=== PATIENT | male | born 1950 | race Caucasian/White ===

== ENCOUNTER 2016-09-10 09:09 | Emergency (ER) | payer OTHER ==
[~2016-09-10] VITALS: Ht 175.3 cm; Wt 87.1 kg
[~2016-09-10 09:09] MED LIST: AVAPRO150 M1 PO; BALANCED B COM1 EACH PO; BAYER CHEWABLE81 MG PO; ESCITALOPRAM OX10 MG PO; LYRICA150 M1 PO; METANX CAPSULE1 EACH PO; PROLIA60 MG/1 ML INJ; SIMVASTATIN80 M1 PO; VGO 201 EACH; VITAMIN D1000 UNIT PO
[2016-09-10 11:27] VITALS: BP 182/78
--- NOTE | 2016-09-10 11:43 | RADIOLOGY REPORT ---
EXAMINATION: XR FOOT, RIGHT CLINICAL INFORMATION: Right foot ecchymosis. COMPARISON: None TECHNIQUE: AP, lateral, and oblique views of the right foot. FINDINGS: There is no evidence of acute fracture or dislocation. Marked changes noted in the tarsal joints. This especially evident in the navicular cuneiform joint. Subcortical cystic changes noted in the navicular. Inferior calcaneal spur. Degenerative changes noted in the interphalangeal joints. No gross soft tissue swelling. IMPRESSION: 1. No acute osseous abnormality. 2. Arthritic changes notably medial tarsal joints.
--- NOTE | 2016-09-12 16:41 | ED GENERAL ADULT ---
History of Present Illness General Chief Complaint: Lower Extremity Problems Stated Complaint: DISCOLORATION/SWELLING TO RT FOOT X 2 DAYS Source: patient, family Exam Limitations: no limitations Vital Signs & Intake/Output Vital Signs & Intake/Output HE WILL FOLLOW-UP WITH HIS DOCTOR NEXT WEEK. RETURN TO THE EMERGENCY DEPARTMENT OF [facility]. X-RAY WAS NEGATIVE FOR FRACTURE BUT DID SHOW ARTHRITIS. Allergies Coded Allergies: NO KNOWN ALLERGIES (02/26/16) Reconcile Medications Aspirin (Teresita Chewable Aspirin) 81 MG TAB.CHEW 1 TAB PO DAILY HEART HEALTH ( Reported) Cholecalciferol (Vitamin D3) (Vitamin D) 1,000 UNIT TABLET 1 TAB PO BID VITAMIN BONE HEALH (Reported) Denosumab (Prolia) 60 MG/1 ML SYRINGE DIABETES (Reported) Escitalopram Oxalate 10 MG TABLET 1 TAB PO BID MENTAL HEALTH (Reported) Irbesartan (Avapro) 150 MG TABLET 1 TAB PO DAILY URINARY ISSUES (Reported) Pregabalin (Lyrica) 150 MG CAPSULE 1 CAP PO BID PAIN (Reported) Simvastatin (Simvastatin*) 80 MG TABLET 1 TAB PO DAILY HEART HEALTH (Reported ) Sub-Q Insulin Device, 20 Unit (Vgo 20) 1 EACH EACH DIABETES (Reported) Vitamin B Complex & Vit C No.3 (Balanced B Complex-Vit C) 1 EACH TABLET.ER 1 TAB PO BID VITAMIN (Reported) Triage Note: C/O R TOES DISCOLORATION AND SWELLING X 2 DAYS. STATES HE FALLS FRREQUENTLY DUE TO NEUROPATHY AND BILATERLA LOWER LEG NUMBNESS. FELL LAST WEEK. PMH:IDDM (INSULIN PUMP) Triage Nurses Notes Reviewed? yes Onset: Abrupt Duration: day(s): Timing: recent history HPI: 09/10/16 THIS IS A 66-YEAR-OLD MALE WHO PRESENTS TO THE EMERGENCY DEPARTMENT FOR ECCHYMOSIS TO THE RIGHT FOOT. The patient states he has a history of neuropathy. He has decreased sensation to his lower extremities. He says that he noticed some ecchymosis to the right great toe and just below the second and third toe. he was concerned he may have a fracture. The onset of the symptoms were abrupt. duration was the past 48 hours. the severity was significant as his symptoms required him to come to the emergency department for care. he has associated ecchymosis to the right foot. there is no shortness of breath. there is no fever. he has no associated other complaints. Past History Travel History Traveled to [place] past 21 day No Medical History Any Pertinent Medical History? 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 No Review of Systems Review of Systems Constitutional: Denies: fever. EENTM: Reports: no symptoms. Respiratory: Reports: no symptoms. Cardiovascular: Reports: no symptoms. GI: Reports: no symptoms. Genitourinary: Reports: no symptoms. Musculoskeletal: Reports: see HPI. Skin: Reports: see HPI. Neurological/Psychological: Reports: no symptoms. Hematologic/Endocrine: Reports: bruising. Immunologic/Allergic: Reports: see HPI. Physical Exam Physical Exam General Appearance: no apparent distress, alert, awake, anxious Head: atraumatic, normal appearance Eyes: Bilateral: normal appearance, PERRL, EOMI. Ears, Nose, Throat: normal ENT inspection Neck: supple Respiratory: chest non-tender, no respiratory distress Cardiovascular: regular rate/rhythm Peripheral Pulses: 2+ dorsalis pedis (R), 2+ dorsalis pedis (L) Back: normal range of motion Extremities: ECCHYMOSIS RIGHT FOOT Neurologic/Psych: awake, alert, oriented x 3 Skin: normal color, warm/dry, ECCHYMOSIS RIGHT FOOT Core Measures ACS in differential dx? No CVA/TIA Diagnosis: No Severe Sepsis Present: No Septic Shock Present: No Progress Differential Diagnoses I considered the following diagnoses in my evaluation of the patient: [ FRACTURE , CONTUSION, ARTHRITIS, DVT, acute arterial occlusion, coagulopathy, peripheral vascular disease] Plan of Care: FOLLOW-UP WITH HIS PCP next week. Initial ED EKG: none Departure Departure Disposition: HOME OR SELF CARE Condition: Stable Clinical Impression Primary Impression: Contusion Secondary Impressions: Neuropathy Referrals: CRUZ ROX ARORA (PCP/Family) Additional Instructions: FOLLOW UP NEEDED ED IF PAIN OR WORSE Departure Forms: Customer Survey General Discharge Information Comments THE RIGHT FOOT HAS A PALPABLE DORSALIS PEDIS PULSE AND CAPILLARY REFILL IS LESS THAN 2 SECONDS. THE TEMPERATURE BETWEEN THE 2 FEET ARE EQUAL. HE DOES HAVE SOME ECCHYMOSIS TO THE BASE OF THE RIGHT GREAT TOE, AND TO THE BASE OF THE FIRST AND SECOND TOE. X-RAYS NEGATIVE FOR FRACTURE. Critical Care Note Critical Care Note Critical Care Time: non-applicable
== END 2016-09-10 12:24 ==
LOC: ERH 09:09
DX: S90.121A Contusion of right lesser toe(s) without damage to nail, initial encounter (principal); G62.9 Polyneuropathy, unspecified; W19.XXXA Unspecified fall, initial encounter; Y92.9 Unspecified place or not applicable; Y93.9 Activity, unspecified
CPT/HCPCS: 73630-RT

== ENCOUNTER 2016-09-16 11:46 | Emergency (ER) | payer OTHER ==
[~2016-09-16] VITALS: Ht 177.8 cm; Wt 83.5 kg
--- NOTE | 2016-09-16 13:28 | RADIOLOGY REPORT ---
EXAMINATION: XR CHEST CLINICAL INFORMATION: Night sweats and weakness. COMPARISON: Chest x-ray 02/06/2016. TECHNIQUE: Frontal and lateral views of the chest were obtained. FINDINGS: The lung crespo are well expanded and appear clear bilaterally. The cardiac silhouette is normal. There are no pleural effusions or pneumothorax. The central pulmonary vasculature is normal. The hilar regions appear normal. There are no acute osseous findings. IMPRESSION: 1. There are no acute cardiopulmonary findings.
[2016-09-16 13:49] LABS: ABSOLUTE BASOPHIL COUNT 0 /CUMM (0.0-0.2); ABSOLUTE EOSINOPHIL COUNT 0.1 /CUMM (0.0-0.7); ABSOLUTE GRANULOCYTE CT 4.2 /CUMM (1.4-6.5); ABSOLUTE LYMPH COUNT 1.4 /CUMM (1.2-3.4); ABSOLUTE MONOCYTE COUNT 0.5 /CUMM (0.10-0.60); BASOPHIL % 0.6 % (0.0-2.0); EOSINOPHIL % 1.2 % (0-5); GRANULOCYTE % 67.2 % (42.2-75.2); HEMATOCRIT 37.2 % (42-52); MEAN CORPUSCULAR HGB 26.9 PG (27.0-31.0); MEAN CORPUSCULAR HGB CONC 33.6 G/DL (33.0-37.0); MEAN CORPUSCULAR VOLUME 80.2 FL (80.0-94.0); PLATELET COUNT 263 /CUMM (130-400); RBC DISTRIBUTION WIDTH 13.6 % (11.5-14.5); RED BLOOD CELL CT 4.64 /CUMM (4.70-6.10); WHITE BLOOD CELL COUNT 6.2 /CUMM (4.8-10.8)
[2016-09-16] MEDS ORDERED: BACTRIM DS TAB1 EACH PO (14:19)
--- NOTE | 2016-09-16 14:20 | ED GENERAL ADULT ---
History of Present Illness General Chief Complaint: General Adult Stated Complaint: LIGHT HEADED POOR NPO INTAKE Source: patient, family, old records Exam Limitations: no limitations Vital Signs & Intake/Output Vital Signs & Intake/Output Vital Signs Date Time Temp Pulse Resp B/P Pulse O2 O2 Flow FiO2 Ox Delivery Rate 09/16 1443 69 20 192/80 98 Room Air 09/16 1358 96.5 84 18 195/89 97 Room Air 09/16 1201 98 Room Air Room Air 09/16 1151 97.1 91 18 140/71 99 Room Air Allergies Coded Allergies: No Known Allergies (09/16/16) Reconcile Medications Aspirin (Teresita Chewable Aspirin) 81 MG TAB.CHEW 1 TAB PO DAILY HEART HEALTH ( Reported) Cholecalciferol (Vitamin D3) (Vitamin D) 1,000 UNIT TABLET 1-2 TAB PO BID VITAMIN BONE HEALH (Reported) TAKES 2 TABS IN THE MORNING AND 1 AT NIGHT Denosumab (Prolia) 60 MG/1 ML SYRINGE 1 ML INJ SI DIABETES (Reported) TAKES EVERY 6 MONTHS, LAST HAD 06/2016 Escitalopram Oxalate 10 MG TABLET 1 TAB PO BID MENTAL HEALTH (Reported) Irbesartan (Avapro) 150 MG TABLET 1 TAB PO DAILY URINARY ISSUES (Reported) Pregabalin (Lyrica) 150 MG CAPSULE 1 CAP PO BID PAIN (Reported) Simvastatin (Simvastatin*) 80 MG TABLET 1 TAB PO DAILY HEART HEALTH (Reported ) Sub-Q Insulin Device, 20 Unit (Vgo 20) 1 EACH EACH DIABETES (Reported) Sulfamethoxazole/Trimethoprim (Bactrim Ds Tablet) 800 MG-160 MG TABLET 1 TAB PO BID bactiuria Vitamin B Complex & Vit C No.3 (Balanced B Complex-Vit C) 1 EACH TABLET.ER 1 TAB PO BID VITAMIN (Reported) Core Measure Meds Pre-Hospital aspirin Triage Note: 66 Y/O MALE C/O NOT FEELING WELL X A FEW DAYS. STATES HE HASN'T BEEN DRINKING A LOT OF LIQUIDS AND HAS BEEN WAKING IN NIGHT WITH SWEATS. STATES "THE DOCTOR WANTS MY KIDNEYS CHECKED" DUE TO RECENT HX OF "BLOOD IN KIDNEY". DENIES N/V/D. DENIES PAIN. Triage Nurses Notes Reviewed? yes Onset: 2 days Duration: day(s):, continues in ED, waxing and waning Timing: recent history Injury Environment: home Severity: severe No Modifying Factors: none Associated Symptoms: diaphoresis HPI: 2 days prior to admission patient reports anorexia and fatigue with nocturnal sweating chills. He denies fever nausea vomiting diarrhea abdominal pain dysuria rash headache bleeding chest pain shortness of breath cough. Past History Travel History Traveled to [place] past 21 day No Medical History Any Pertinent Medical History? 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 No Review of Systems Review of Systems Constitutional: Reports: see HPI, diaphoresis, malaise. EENTM: Reports: no symptoms. Respiratory: Reports: no symptoms. Cardiovascular: Reports: no symptoms. GI: Reports: no symptoms. Genitourinary: Reports: no symptoms. Musculoskeletal: Reports: no symptoms. Skin: Reports: no symptoms. Neurological/Psychological: Reports: no symptoms. Hematologic/Endocrine: Reports: no symptoms. Immunologic/Allergic: Reports: no symptoms. All Other Systems: Reviewed and Negative Physical Exam Physical Exam General Appearance: well developed/nourished, alert, awake, anxious, moderate distress Head: atraumatic, normal appearance Eyes: Bilateral: normal appearance, PERRL, EOMI. Ears, Nose, Throat: normal pharynx, normal ENT inspection, hearing grossly normal Neck: normal inspection, supple, full range of motion, no midline tenderness Respiratory: normal breath sounds, chest non-tender, no respiratory distress, quiet respiration, lungs clear Cardiovascular: regular rate/rhythm, normal peripheral pulses, norml femoral pulses equa Peripheral Pulses: 4+ carotid (R), 4+ carotid (L) Gastrointestinal: normal bowel sounds, soft, non-tender, no organomegaly Back: normal inspection, normal range of motion Extremities: normal inspection, normal capillary refill, normal range of motion, no edema, no ligament instability Neurologic/Psych: awake, alert, oriented x 3, normal gait, normal mood/affect, 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 Skin: intact, normal color, warm/dry Lymphatic: no anterior cervical patrick Core Measures ACS in differential dx? No CVA/TIA Diagnosis: No Severe Sepsis Present: No Septic Shock Present: No Progress Differential Diagnoses I considered the following diagnoses in my evaluation of the patient: Pneumonia UTI prostatitis bacteremia DKA Plan of Care: Orders Procedure Date/time Status URINALYSIS 09/16 1214 Complete TSH REFLEX 09/16 1214 Complete TROPONIN LEVEL 09/16 1214 Complete LIPASE 09/16 1214 Complete COMPREHENSIVE METABOLIC PANEL 09/16 1214 Complete CBC WITHOUT DIFFERENTIAL 09/16 1214 Complete ACETONE 09/16 1214 Complete EKG 09/16 1214 Active Laboratory Tests 09/16/16 1338: RBC 4.64 L, MCV 80.2, MCH 26.9 L, RDW 13.6, MPV 9.0, Gran % 67.2, Lymphocytes % 23.1, Monocytes % 7.9, Eosinophils % 1.2, Basophils % 0.6, Absolute Granulocytes 4.2, Absolute Lymphocytes 1.4, Absolute Monocytes 0.5, Absolute Eosinophils 0.1, Absolute Basophils 0, PUBS MCHC 33.6 09/16/16 1235: Anion Gap 9, Estimated GFR > 60, BUN/Creatinine Ratio 21.0, Glucose 193 H, Calcium 10.1, Total Bilirubin 0.7, AST 29, ALT 62, Alkaline Phosphatase 110, Troponin I < 0.01, Total Protein 7.5, Albumin 4.3, Globulin 3.2, Albumin/ Globulin Ratio 1.3, Lipase 250, TSH &T3 &Free T4 Intrp 1.470, Acetone Level NEGATIVE 09/16/16 1223: Urinalysis LIGHT H, Urine Color YEL, Urine Clarity HAZY H, Urine pH 5.5, Ur Specific Bernard >= 1.030, Urine Protein 30 H, Urine Ketones 15 H, Urine Nitrite POS H, Urine Bilirubin NEG@ICTO, Urine Urobilinogen 0.2, Ur Leukocyte Esterase NEG, Ur Microscopic SEDIMENT EXAMINED, Urine RBC 1-3, Urine WBC 3-5 H, Ur Epithelial Cells FEW, Urine Bacteria FEW H, Urine Mucus MANY H, Urine Hemoglobin TRACE-INTACT H, Urine Glucose >=1000 H Diagnostic Imaging: Viewed by Me: Radiology Read. Discussed w/RAD: Radiology Read. CXR Impression: no acute abnormality Initial ED EKG: normal axis, normal intervals, normal p-waves, normal QRS complex, normal sinus rhythm, no ST T wave changes Prior EKG: unchanged Rhythm Strip: normal sinus rhythm Departure Departure Time of Disposition: 1416 Disposition: HOME OR SELF CARE Condition: Stable Clinical Impression Primary Impression: Bacteriuria Secondary Impressions: Elevated serum glucose with glucosuria Referrals: CRUZ ROX ARORA (PCP/Family) Departure Forms: Customer Survey General Discharge Information Prescriptions: Current Visit Scripts Sulfamethoxazole/Trimethoprim (Bactrim Ds Tablet) 1 TAB PO BID #20 TAB Critical Care Note Critical Care Note Critical Care Time: non-applicable
[2016-09-16 14:43] VITALS: BP 192/80
== END 2016-09-16 14:51 ==
LOC: ERH 11:46
PROVIDERS: Emergency Medicine
DX: R82.71 Bacteriuria (principal); R73.09 Other abnormal glucose
CPT/HCPCS: 81001; 93005; 93010; 96361; 96374; J0696

== ENCOUNTER 2016-09-28 19:05 | Emergency (ER) | payer OTHER ==
[~2016-09-28] VITALS: Ht 177.8 cm; Wt 84.8 kg
[~2016-09-28 19:05] MED LIST changes: +BACTRIM DS TAB1 EACH PO
--- NOTE | 2016-09-28 20:40 | RADIOLOGY REPORT ---
EXAMINATION: 4 VIEWS OF THE LEFT WRIST AND 4 VIEWS OF THE RIGHT WRIST CLINICAL INFORMATION: Pain after fall. Rule out fracture. COMPARISON: None TECHNIQUE: 4 views of the right wrist 4 views of the left wrist. FINDINGS: Left wrist: There is a transverse impacted fracture of the distal radial metaphysis with overriding fracture fragments. It is difficult to discern as to whether there is a fracture line component extending to the radial articular surface. The carpal bones are in normal anatomic alignment. There is no significant abnormal angulation at the fracture site. Surrounding soft tissue swelling is noted. There may be a subtle nondisplaced fracture through the distal ulna which is only visible on the frontal projection. Right wrist: There is a transverse fracture through the distal radial metaphysis without impaction. The ulnar styloid process is avulsed. Surrounding soft tissue swelling is noted. The carpal bones are in normal anatomic alignment with the distal radius. No additional fractures are identified. IMPRESSION: Left wrist: Impacted fracture of the distal radial metaphysis with a suspected subtle nondisplaced fracture through the distal ulna as well. Surrounding soft tissue swelling. A subtle fracture line extending to the radiocarpal articulation cannot be excluded. No significant abnormal malalignment at the fracture site. Right wrist: Transverse fracture of the distal radius without impaction or abnormal angulation. Additional avulsion fracture of the ulnar styloid process. Soft tissue swelling. No abnormal angulation at the fracture site.
--- NOTE | 2016-09-28 20:50 | ED UPPER/LOWER EXTREMITY COMPL ---
History of Present Illness General Chief Complaint: Hand or Wrist Injury Stated Complaint: BI LATERAL WRIST PAIN Source: patient Exam Limitations: no limitations Vital Signs & Intake/Output Vital Signs & Intake/Output Vital Signs Date Time Temp Pulse Resp B/P Pulse O2 O2 Flow FiO2 Ox Delivery Rate 09/28 2124 Room Air 09/29 2103 98.5 70 16 157/71 99 Room Air 09/28 1928 97.1 74 18 168/80 100 Room Air Allergies Coded Allergies: No Known Allergies (09/16/16) Reconcile Medications Aspirin (Teresita Chewable Aspirin) 81 MG TAB.CHEW 1 TAB PO DAILY HEART HEALTH ( Reported) Cholecalciferol (Vitamin D3) (Vitamin D) 1,000 UNIT TABLET 1-2 TAB PO BID VITAMIN BONE HEALH (Reported) TAKES 2 TABS IN THE MORNING AND 1 AT NIGHT Denosumab (Prolia) 60 MG/1 ML SYRINGE 1 ML INJ SI DIABETES (Reported) TAKES EVERY 6 MONTHS, LAST HAD 06/2016 Escitalopram Oxalate 10 MG TABLET 1 TAB PO BID MENTAL HEALTH (Reported) Irbesartan (Avapro) 150 MG TABLET 1 TAB PO DAILY URINARY ISSUES (Reported) Oxycodone HCl/Acetaminophen (Percocet 5-325 MG Tablet) 5 MG-325 MG TABLET 1 TAB PO Q6 PRN PAIN Pregabalin (Lyrica) 150 MG CAPSULE 1 CAP PO BID PAIN (Reported) Simvastatin (Simvastatin*) 80 MG TABLET 1 TAB PO DAILY HEART HEALTH (Reported ) Sub-Q Insulin Device, 20 Unit (Vgo 20) 1 EACH EACH DIABETES (Reported) Sulfamethoxazole/Trimethoprim (Bactrim Ds Tablet) 800 MG-160 MG TABLET 1 TAB PO BID bactiuria Vitamin B Complex & Vit C No.3 (Balanced B Complex-Vit C) 1 EACH TABLET.ER 1 TAB PO BID VITAMIN (Reported) Triage Note: PT TO ED FOR BILATERAL WRIST PAIN. STATING HE FELL WHILE GOLFING TODAY. PT ABLE TO WIGGLE FINGERS, +PULSES, NO DEFORMITY. PT REQUESTING XRAY OF BOTH WRISTS. Triage Nurses Notes Reviewed? yes Onset: Abrupt Duration: constant Timing: single episode today Severity: moderate Severity Numbers: 5 Pain/Injury Location: Bilateral: Wrist. Method of Injury: direct blow, fall HPI: Patient is a 66-year-old male who presents emergency room saying that [place] patient swung a golf club misstepped and fell backwards bracing his fall with bilateral upper extremities resulting acute onset of localized bilateral wrist pain. Denies any head strike elbow pain (DOMINIK LANZA) Past History Travel History Traveled to [place] past 21 day No Medical History Any Pertinent Medical History? 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 No (DOMINIK LANZA) Review of Systems Review of Systems Constitutional: Reports: no symptoms. EENTM: Reports: no symptoms. Respiratory: Reports: no symptoms. Cardiovascular: Reports: no symptoms. Gastrointestinal/Abdominal: Reports: no symptoms. Genitourinary: Reports: no symptoms. Musculoskeletal: Reports: see HPI, joint pain. Skin: Reports: no symptoms. Neurological/Psychological: Reports: no symptoms. Hematologic/Endocrine: Reports: no symptoms. Immunological: Reports: no symptoms. All Other Systems: Reviewed and Negative (DOMINIK LANZA) Physical Exam Physical Exam General Appearance: no apparent distress, alert, comfortable Neurologic/Tendon: normal sensation, normal motor functions, normal tendon functions, responds to pain, no evidence tendon injury Comments: Well-developed well-nourished no apparent distress. HEENT: Atraumatic, extraocular motion intact Neck: Supple, no lymphadenopathy Back: Nontender Respiratory: No respiratory distress Extremities: Bilateral elbow nontender full active range of motion normal inspection Bilateral wrist noted point tenderness decreased active range of motion radial pulse +2 decreased active range of motion Bilateral hand normal inspection nontender Capillary refill less than 2 seconds Bilateral upper extremity dermatomes intact Neuro: Alert and oriented x3 Psych: Mood affect normal, normal memory normal judgment. (DOMINIK LANZA) Progress Differential Diagnosis: arterial insufficiency, compartment syndrome, contusion, dislocation, DVT, fracture, gout, septic arthritis, sprain, tendon injury Plan of Care: Orders Procedure Date/time Status Durable Medical Equipment 09/28 2233 Active Left upper extremity on exam has no concern of neurovascular compromise when concerned with x-ray on initial exam. I discussed x-ray findings with Dr. Darnell who advised reduction in the emergency room. Sterile technique Betadine was first applied then using 8 30-1/2-gauge needle I applied intradermal localization of 1% lidocaine and using at the same location A 25-gauge needle I performed a hematoma block using 1% lidocaine 10 mL which was successful for local anesthesia. Reduction was performed patient tolerated well sugar tong splint was then applied shoulder immobilizer was also applied pre-and post-neurovascular was intact Patient was strongly advised to follow-up with Dr. Darnell The right forearm was not reduced in the emergency room however I did apply a sugar tong splint to the right wrist Shoulder immobilizers were placed to bilateral upper extremities Pre-and post-neurovascular was intact (YOVANA MAGALLON,DOMINIK) Diagnostic Imaging: Viewed by Me: Radiology Read. Radiology Impression: acute abnormality Comments: PATIENT: BENOIT FERNANDEZ PRESENT AGE: 66 PATIENT ACCOUNT NO: [id number] : 52 LOCATION: [facility] ORDERING PHYSICIAN: DOMINIK MAGALLON SERVICE DATE: 09/28/16 EXAM TYPE: RAD - XRY-WRIST COMPLETE-LEFT EXAMINATION: XR WRIST, LEFT CLINICAL INFORMATION: Status post reduction left wrist. COMPARISON: Left wrist 09/28/2016 performed earlier today. TECHNIQUE: AP, lateral, and oblique views of the left wrist. FINDINGS: There is an impacted distal radial fracture stabilized with left wrist in a hard cast. No change in distal left ulnar fracture. IMPRESSION: Stabilized impacted left distal radial and subtle ulnar styloid process fracture with left wrist in a hard cast. PATIENT: BEONIT FERNANDEZ PRESENT AGE: 66 PATIENT ACCOUNT NO: [id number] : 52 LOCATION: ER ORDERING PHYSICIAN: CARMEL SOUZA MD SERVICE DATE: 09/28/16 EXAM TYPE: RAD - XRY-WRIST COMPLETE-LEFT; XRY-WRIST COMPLETE-RIGHT EXAMINATION: 4 VIEWS OF THE LEFT WRIST AND 4 VIEWS OF THE RIGHT WRIST CLINICAL INFORMATION: Pain after fall. Rule out fracture. COMPARISON: None TECHNIQUE: 4 views of the right wrist 4 views of the left wrist. FINDINGS: Left wrist: There is a transverse impacted fracture of the distal radial metaphysis with overriding fracture fragments. It is difficult to discern as to whether there is a fracture line component extending to the radial articular surface. The carpal bones are in normal anatomic alignment. There is no significant abnormal angulation at the fracture site. Surrounding soft tissue swelling is noted. There may be a subtle nondisplaced fracture through the distal ulna which is only visible on the frontal projection. Right wrist: There is a transverse fracture through the distal radial metaphysis without impaction. The ulnar styloid process is avulsed. Surrounding soft tissue swelling is noted. The carpal bones are in normal anatomic alignment with the distal radius. No additional fractures are identified. IMPRESSION: Left wrist: Impacted fracture of the distal radial metaphysis with a suspected subtle nondisplaced fracture through the distal ulna as well. Surrounding soft tissue swelling. A subtle fracture line extending to the radiocarpal articulation cannot be excluded. No significant abnormal malalignment at the fracture site. Right wrist: Transverse fracture of the distal radius without impaction or abnormal angulation. Additional avulsion fracture of the ulnar styloid process. Soft tissue swelling. No abnormal angulation at the fracture site. DICTATED BY: PRIETO BURKS MD DATE/TIME DICTATED:09/28/162032 (DOMINIK LANZA) Departure Departure Disposition: HOME OR SELF CARE Condition: Stable Clinical Impression Primary Impression: Left wrist fracture Secondary Impressions: Right wrist fracture Referrals: AL ARORA,GINETTE CRUZ MD,ROX Schmitz (PCP/Family) Additional Instructions: As discussed tomorrow first thing please follow with orthopedic Dr. Reis for further evaluation treatment. Begin [id number] ibuprofen for pain and inflammation. Begin the prescription of Percocet for breakthrough pain only. Continue use the shoulder immobilizer and wrist splint applied to the emergency room at all times to follow up with orthopedic doctor. If symptoms worsen return to the emergency room. Prescriptions waiting at [facility] pharmacy Departure Forms: Customer Survey General Discharge Information Prescriptions: Current Visit Scripts Oxycodone HCl/Acetaminophen (Percocet 5-325 MG Tablet) 1 TAB PO Q6 PRN PAIN #15 TAB (DOMINIK LANZA) PA/HR INTERN Co-Sign Statement Statement: ED Attending supervision documentation- [] I saw and evaluated the patient. I have also reviewed all the pertinent lab results and diagnostic results. I agree with the findings and the plan of care as documented in the PA's/HR INTERN's documentation. [X] I have reviewed the ED Record and agree with the PA's/HR INTERN's documentation. [] Additions or exceptions (if any) to the PAs/HR INTERN's note and plan are summarized below: [] (LIBBY ARORA,CARMEL) Procedures Splinting Location: BILATERAL WRIST Manual Alignment Performed: Yes Hand-Made Type: orthoglass Splint: sugar-tong Splint Applied By: splint applied by me Pre-Proc Neuro Vasc Exam: normal Post-Proc Neuro Vasc Exam: normal (DOMINIK LANZA)
[2016-09-28 21:04] VITALS: BP 157/71
[2016-09-28] MEDS ORDERED: PERCOCET 5-3251 EACH PO (21:58)
--- NOTE | 2016-09-28 22:47 | RADIOLOGY REPORT ---
EXAMINATION: XR WRIST, LEFT CLINICAL INFORMATION: Status post reduction left wrist. COMPARISON: Left wrist 09/28/2016 performed earlier today. TECHNIQUE: AP, lateral, and oblique views of the left wrist. FINDINGS: There is an impacted distal radial fracture stabilized with left wrist in a hard cast. No change in distal left ulnar fracture. IMPRESSION: Stabilized impacted left distal radial and subtle ulnar styloid process fracture with left wrist in a hard cast.
== END 2016-09-28 23:05 ==
LOC: ERH 19:05
DX: S52.502A Unspecified fracture of the lower end of left radius, initial encounter for closed fracture (principal); S52.501A Unspecified fracture of the lower end of right radius, initial encounter for closed fracture; W19.XXXA Unspecified fall, initial encounter; Y92.39 Other specified sports and athletic area as the place of occurrence of the external cause; Y93.53 Activity, golf
CPT/HCPCS: 73110-LT; 73110-RT; 96372